=== PATIENT | female | born 1995 | race Caucasian/White ===

== ENCOUNTER 2022-01-31 22:15 | Emergency (ER) | payer BC ==
[~2022-01-31] VITALS: Ht 157.5 cm; Wt 61.8 kg
[2022-01-31 22:24] VITALS: TEMP 98.6
[2022-02-01] MEDS ORDERED: PREDNISONE20 MG PO (00:08)
[2022-02-01 00:26] VITALS: BP 105/71; PULSE 84
== END 2022-02-01 00:30 | disposition home or self-care (01) ==
LOC: COL.ER 22:15
DX: T78.40XA Allergy, unspecified, initial encounter (principal)
CPT/HCPCS: J0171; J1100; J1200; J7030